=== PATIENT | male | born 1945 | race Caucasian/White ===

== ENCOUNTER → 2017-03-15 | Outpatient (CLI) | payer MEDICARE, OTHER | LOC: COL.RAD 10:16 | DX: Z13.6 Encounter for screening for cardiovascular disorders (principal); I25.10 Atherosclerotic heart disease of native coronary artery without angina pectoris; F17.200 Nicotine dependence, unspecified, uncomplicated ==

== ENCOUNTER → 2021-02-14 | Emergency (ER) | payer MEDICARE, OTHER ==
[2021-02-14 17:39] LABS: BILIRUBIN,TOTAL 0.6 mg/dL (0.0-1.0); CREATININE, serum 1.19 (0.66-1.25); TOTAL PROTEIN 4.1 gm/dL (6.4-8.2)
[2021-02-14 17:42] LABS: POTASSIUM 6.3 mmol/L (3.4-5.0)
[2021-02-14 17:48] LABS: HEMATOCRIT 46.7 % (42.0-52.0); HEMOGLOBIN 14.1 g/dl (13.5-18.0); INR 1.5 (0.8-3.0); MEAN CELL VOLUME 100 fl (80.0-100.0); MEAN CORPUSCULAR HEMOGLOBIN 30 pg (27.0-31.0); MEAN CORPUSCULAR HGB CONC 30 g/dl (33.0-37.0); MEAN PLATELET VOLUME 10.6 fl (7.4-10.4); PLATELET COUNT 118 K/mm3 (130-400); PROTHROMBIN TIME 17.2 SECONDS (9.7-12.8); RED BLOOD COUNT 4.67 M/mm3 (4.20-5.60); REDCELL DISTRIBUTION WIDTH-CV 13.5 % (11.5-14.5)
[2021-02-14 18:04] LABS: TROPONIN-I 0.283 ng/mL (0.000-0.035)
[2021-02-14 18:14] LABS: COLLECTION METHOD CATHETER
[2021-02-14 18:36] LABS: MUCOUS Present /lpf; PH 5 (5-8); SQUAMOUS EPITHELIAL 0-2 /hpf; URINE APPEARANCE Cloudy; URINE BACTERIA Rare /hpf; URINE BILIRUBIN Negative (NEGATIVE); URINE BLOOD Negative (NEGATIVE); URINE COLOR Yellow; URINE GLUCOSE Negative (NEGATIVE); URINE KETONE Trace (NEGATIVE); URINE LEUKOCYTE ESTERASE Negative (NEGATIVE); URINE NITRATE Negative (NEGATIVE); URINE PROTEIN(semi-quant) 1+ (NEGATIVE); URINE RBC None Seen /hpf; URINE UROBILINOGEN Negative (NEGATIVE)
[2021-02-14 18:53] LABS: TSH w REFLEX 2.151 uIU/mL (0.350-4.940)
[2021-02-14 19:01] LABS: BAND 1 % (0-10); BASOPHIL 2 % (0-2); EOSINOPHIL 1 % (0-4); HYPOCHROMIA 3+; LYMPHOCYTE 31 % (20.0-51.0); METAMYELOCYTE 2 % (0-0); NEUTROPHILS 59 % (42.0-75.2); PLATELET ESTIMATE DECREASED (NORMAL)
[2021-02-14 19:15] VITALS: BP 96/68; PULSE 77; TEMP 95.9
== END ==
LOC: COL.ER 17:00
PROVIDERS: Emergency Medicine
DX: I46.9 Cardiac arrest, cause unspecified (principal); J44.9 Chronic obstructive pulmonary disease, unspecified; Z20.822 Contact with and (suspected) exposure to COVID-19
CPT/HCPCS: J0171; J0610; J1815; J2370; J3010; J7060